=== PATIENT | female | born 1975 | race Caucasian/White ===

== ENCOUNTER 2021-04-29 06:47 | Emergency (ER) | payer BC ==
[~2021-04-29] VITALS: Ht 167.6 cm; Wt 68.0 kg
--- NOTE | 2021-04-29 07:13 | NUR ---
PATIENT BIBRA 89 FROM HOME C/O OVERWHELEMED AND ANXIOUS FOR THE PAST YEAR. FELT WORST TODAY. PATIENT IS A/O X 3, RR EVEN AND UNLABORED, NO SOB NOTED. PATIENT PLACED IN BED, SITTER AT BEDSIDE. PT CONNECTED TO MONITORS.
--- NOTE | 2021-04-29 07:17 | NUR ---
CALL SON [phone] FOR [employer] AND [employer]IVETER
[2021-04-29] MEDS ORDERED: LORAZEPAM 0.5 MG TABLET ONE (07:28)
[2021-04-29] MEDS ORDERED: LORAZEPAM 1 MG TABLET PO ONE (07:30)
[2021-04-29 07:59] LABS: BASOPHILS # (AUTO) 0.1 K/uL (0.0-0.2); BASOPHILS % (AUTO) 0.7 % (0.0-2.0); EOSINOPHILS % (AUTO) 0.8 % (0.0-6.0); HEMATOCRIT 42 % (33-45); HEMOGLOBIN 14.5 g/dL (11.5-14.8); LYMPHOCYTES # (AUTO) 1.3 K/uL (0.8-4.8); LYMPHOCYTES % (AUTO) 18.5 % (20.0-44.0); MEAN CORPUSCULAR HGB CONC 34 g/dl (31.0-36.0); MEAN CORPUSCULAR VOLUME 91 fL (82-100); MONOCYTES # (AUTO) 0.4 K/uL (0.1-1.30); MONOCYTES % (AUTO) 5.5 % (2.0-12.0); NEUTROPHILS # (AUTO) 5.2 K/uL (1.8-8.9); NEUTROPHILS % (AUTO) 74.5 % (43.0-81.0); PLATELET COUNT (AUTO) 190 K/uL (150-450); RED BLOOD CELL COUNT(AUTO) 4.63 MIL/uL (4.0-5.2); WHITE BLOOD COUNT (AUTO) 6.9 K/uL (4.3-11.0)
[2021-04-29] MEDS ORDERED: IBUPROFEN 600 MG TABLET PO ONE (09:30)
[2021-04-29] MEDS ORDERED: IBUPROFEN 600 MG TABLET ONE (09:32)
--- NOTE | 2021-04-29 09:37 | NUR ---
The patient has c/o left leg pain 5/10. Medicated per order.
--- NOTE | 2021-04-29 11:39 | NUR ---
PT A/OX4. TOLERATING R/A WELL WITH NO SOB. DENIES PAIN OR DISCOMFORT AT THIS TIME. SAFETY 1:[address]
[2021-04-29 12:07] LABS: ALANINE AMINOTRANSFERASE 28 U/L (12-78); ALBUMIN 3.9 g/dL (3.4-5.0); ALKALINE PHOSPHATASE 46 U/L (46-116); BILIRUBIN,DIRECT 0.1 mg/dL (0.0-0.2); BILIRUBIN,TOTAL 0.5 mg/dL (0.2-1.0); CALCIUM, SERUM 9.1 mg/dL (8.5-10.1); CARBON DIOXIDE 20 mmol/L (21-32); CHLORIDE 101 mmol/L (98-107); CREATININE 0.9 mg/dL (0.6-1.3); GLUCOSE 105 mg/dL (74-106); POTASSIUM 3.6 mmol/L (3.5-5.1); SODIUM SERUM 136 mmol/L (136-145); TOTAL PROTEIN, SERUM 7.5 g/dL (6.4-8.2)
[2021-04-29 12:17] LABS: ALCOHOL, BLOOD < 3 mg/dL (0-0); ASPARTATE AMINOTRANSFERASE 25 U/L (15-37); UREA NITROGEN, BLOOD 7 mg/dL (7-18)
[2021-04-29 12:32] LABS: ACETAMINOPHEN < 10 ug/ml (10-30)
--- NOTE | 2021-04-29 13:20 | NUR ---
MARIANO, SON, , WANTS CALL WITH UPDATES
[2021-04-29 13:24] LABS: BILIRUBIN,URINE NEGATIVE (NEGATIVE); COLOR,URINE YELLOW (YELLOW); LEUKOCYTE ESTERASE ,URINE NEGATIVE (NEGATIVE); NITRITE, URINE NEGATIVE (NEGATIVE); PROTEIN,URINE NEGATIVE (NEGATIVE); UGLUCOSE NEGATIVE (NEGATIVE); UROBILINOGEN,URINE 0.2 EU/dL (0.2)
--- NOTE | 2021-04-29 14:01 | NUR ---
ERNESTO MCCORMICK AT PT'S BEDSIDE
--- NOTE | 2021-04-29 15:19 | NUR ---
Fax clinical reports to [facility]. Waiting for response from Gregorio to see if pt. meets criteria.
--- NOTE | 2021-04-29 15:41 | NUR ---
SS Consult: SS consult for suicidal ideation. Pt. Is a 46-year-old female. Pt. demonstrates adequate insight to the reason for hospitalization. Pt.'s son is also at bedside. Per pt., she was brought to hospital by ambulance. Pt. was oriented x4, alert, and cooperative. During interview, pt. was capable of following directions, made appropriate eye-contact, and appeared well-groomed. Pt.'s speech was at a normal rate. Pt.'s mood was elevated. ANNY explored pt.'s hx of mental health and substance abuse. Pt. reported no hx of substance abuse, or homicidal. Pt. denies auditory hallucinations, visual hallucinations, paranoia, or delusions. Per pt., she has hx of anxiety and depression. She has not received help for it but is willing to. ANNY provided pt. with counseling outpatient resources. Per pt., she been having suicidal thoughts in the last 24 hours but did not attempt to hurt herself. ANNY explored pt.'s living situation. Per pt., she lives with her son and [[id number] [place] [address], tele:[phone]]. Per pt., she reports having adequate support from her family. Pt. expressed that she wants to go to [facility]. ANNY fax clinical reports to [facility]. Plan: ANNY provided available resources and pt. accepted. Resources Provided: Counseling--Outpatient [facility] [address], [place] [address] (Specializes in in-depth psychotherapy for emotional distress: anxiety, depression, interpersonal conflicts, life transitions, childhood abuse) [facility] [address] [place] [address] (Assist with solving problem marital difficulties, separation & divorce, aging parents, & grief, chronic & terminal illness) [facility] [address] [place] [address] (Deal with loss & grief, anxiety, marital difficulties) [facility] [address], [address] [place], [place] [address] (Provide in-home mental services to people who are incapable of leaving their homes) [facility] [address] [place] [address] [facility] [address] [place] [address] PSYCHIATRIC OUTPATIENT SERVICES [facility] Partial Hospitalization and Intensive Outpatient Program (Managed Care and [place] Only)[address] [facility] [phone] [facility] Partial Hospitalization and Outpatient [id number] [facility] [place], [place] [phone] [facility] [id number] [place], [place] [phone] [facility] Partial Hospitalization and Outpatient [id number] [facility] aMrcelo [phone]
--- NOTE | 2021-04-29 17:34 | NUR ---
PT EATING FOOD COMFORTABLE. PT NOT IN ANY DISTRESS AT THIS TIME. TOLERATING R/A WELL WITH NO SOB.
--- NOTE | 2021-04-29 17:34 | NUR ---
COVID ANTIGEN SWAB COLLECTED AND SENT TO LAB
[2021-04-30] MEDS ORDERED: IBUPROFEN 600 MG TABLET PO ONE ×2 (01:30→13:00)
[2021-04-30] MEDS ORDERED: IBUPROFEN 600 MG TABLET ONE ×2 (01:34→13:01)
--- NOTE | 2021-04-30 05:45 | NUR ---
[facility] TO CALL AFTER 07:30 FOR BED
--- NOTE | 2021-04-30 07:45 | NUR ---
THE PATIENT IS RECEIVED IN ER BED #12. SLEEPING. RESPONSIVE TO VERBAL STIMULI. RESPIRATION REGULAR AND UNLABORED. WILL CONTINUE TO MONITOR THE PATIENT.
--- NOTE | 2021-04-30 07:50 | NUR ---
THE PATIENT IS ACCEPTED TO TO [facility] UNDER [address] [place]. PER [facility] NUR[facility] SUP THE PATIENT TO BE TRANSFERED AFTER 1400
--- NOTE | 2021-04-30 07:56 | NUR ---
CALLED [facility] AND SET UP S TRANSPORT TO [facility]. ETA [phone]
[2021-04-30 08:30] VITALS: BP 127/87
[2021-04-30] MEDS ORDERED: LORAZEPAM 0.5 MG TABLET ONE (09:03)
[2021-04-30] MEDS ORDERED: LORAZEPAM 1 MG TABLET PO ONE (09:30)
--- NOTE | 2021-04-30 11:15 | NUR ---
REPORT GIVEN TO NURSING RAGHU GARDINER FROM [facility]
--- NOTE | 2021-04-30 13:25 | NUR ---
FOOD GIVEN TO PT
--- NOTE | 2021-04-30 15:08 | NUR ---
REPORT GIVEN TO AMBULANCE STAFF
--- NOTE | 2021-04-30 15:34 | NUR ---
THE PATIENT IS TRANSFERED TO [facility] IN STABLE CONDITION VIA ARRANGED TRANSPO.
== END 2021-04-30 15:35 ==
LOC: ER 06:52
DX: R45.851 Suicidal ideations (principal); F41.9 Anxiety disorder, unspecified; M77.8 Other enthesopathies, not elsewhere classified; M54.9 Dorsalgia, unspecified; Z20.822 Contact with and (suspected) exposure to COVID-19
CPT/HCPCS: 36415; 80048; 80076; 80143; 80307; 80320; 81003; 84703; 85025; 87426; 99285; C9803; G0480